=== PATIENT | female | born 1985 | race Caucasian/White ===

== ENCOUNTER 2019-01-18 23:26 | Emergency (ER) | payer BC, OTHER, SELFPAY ==
[~2019-01-18] VITALS: Ht 167.6 cm; Wt 72.7 kg
[2019-01-18 23:30] VITALS: BP 143/87
== END 2019-01-19 01:32 | disposition home or self-care (01) ==
LOC: ED 01-19 01:29
DX: S29.011A Strain of muscle and tendon of front wall of thorax, initial encounter (principal); W19.XXXA Unspecified fall, initial encounter; Y93.89 Activity, other specified; Y92.89 Other specified places as the place of occurrence of the external cause; Y99.8 Other external cause status
CPT/HCPCS: 71101; 99283; Q0162

== ENCOUNTER 2020-09-09 11:44 | Day surgery (SDC) | payer BC ==
[~2020-09-09] VITALS: Ht 167.6 cm; Wt 72.0 kg
[2020-09-09] MEDS ORDERED: IBUP200T49 PO (12:09)
--- NOTE | 2020-09-09 12:25 | NUR ---
PT STATES YESTERDAY ABD PAIN BEGAN, CONTINUOUS THROBBING PAIN AND INTERMITTENT STABBING PAIN IN RLQ. COULDNT TAKE THE PAIN ANY LONGER SO PT COME IN ED. PT RPORTS DARK DIARRHEA AND VOMITS EVERYTIME PT EATS.
[2020-09-09] MEDS ORDERED: SODIUM CHLORIDE 0.9% 1,000ML IVBOLUS ONE (12:30)
[2020-09-09] MEDS ORDERED: SODIUM CHLORIDE FLUSH 10ML SYR IVF ONE (12:30)
[2020-09-09] MEDS ORDERED: ONDANSETRON 2MG/ML, 2ML IVPush ONE (12:30)
[2020-09-09] MEDS ORDERED: ONDANSETRON 2MG/ML, 2ML ONE ×2 (12:33→16:03)
[2020-09-09] MEDS ORDERED: MORPHINE SULFATE 4 MG/ML, 1ML ONE ×2 (12:34→14:49)
[2020-09-09 12:42] LABS: BASOPHILS % (AUTO) 0 % (0-1); EOSINOPHILS % (AUTO) 0 % (1-7); LYMPHOCYTES % (AUTO) 19 % (22-44); MEAN CORPUSCULAR HEMOGLOBIN 32.5 pg (27.0-34.8); MEAN CORPUSCULAR HGB CONC 33.6 g/dL (32.4-35.8); MEAN PLATELET VOLUME 8.3 fL (7.4-10.4); MONOCYTES % (AUTO) 9 % (2-9); NEUTROPHILS % (AUTO) 72 % (42-75); PLATELET COUNT 268 x10^3/uL (130-400); RED BLOOD COUNT 4.23 x10^6/uL (3.82-5.3); RED CELL DISTRIBUTION WIDTH 12.5 % (9.6-15.2)
[2020-09-09 12:43] LABS: MD NO
[2020-09-09 12:49] LABS: ALANINE AMINOTRANSFERASE 30 U/L (12-78); ALBUMIN 3.3 g/dL (3.4-5.0); ANION GAP 6 mmol/L (5-15); CALCIUM 8.6 mg/dL (8.5-10.1); CHLORIDE 108 mmol/L (98-107); CREATININE 0.71 mg/dL (0.55-1.02)
[2020-09-09] MEDS: MORPHINE SULFATE 4 MG/ML, 1ML IVPush PRN ×2 (12:58→14:57)
[2020-09-09 12:59] LABS: ALKALINE PHOSPHATASE 105 U/L (45-117); BILIRUBIN,TOTAL 0.5 mg/dL (0.2-1.0); TOTAL PROTEIN 6.9 g/dL (6.4-8.2)
--- NOTE | 2020-09-09 13:20 | NUR ---
pt went to bathroom to get urine sample.
--- NOTE | 2020-09-09 13:38 | NUR ---
PT OFF UNIT IN IMAGING.
[2020-09-09 13:40] LABS: MICROSCOPIC AUTO
[2020-09-09] MEDS ORDERED: OMNIPAQUE 350 MG/ML, 100ML BOTTLE ONE (13:44)
[2020-09-09 13:58] VITALS: BP 113/73
[2020-09-09] MEDS ORDERED: CEFTRIAXONE PMX 1GM/50ML 50 ML IV ONE (14:30)
[2020-09-09] MEDS ORDERED: CEFTRIAXONE PMX 1GM/50ML 50 ML ONE (14:49)
[2020-09-09] MEDS ORDERED: METRONIDAZOLE PMX 500MG/100ML 100 ML IV ONE (15:00)
[2020-09-09] MEDS ORDERED: CHLORHEXIDINE 15 ML UDC PO ONE (15:00)
--- NOTE | 2020-09-09 15:03 | NUR ---
REPORT GIVEN TO OR NURSE AND AUDELIA HILARIO.
[2020-09-09] MEDS ORDERED: BUPIVACAINE/PF 0.5% ONE (15:12)
[2020-09-09] MEDS ORDERED: EPINEPHRINE 1 MG/ML, 1ML ONE (15:12)
[2020-09-09] MEDS ORDERED: MIDAZOLAM 1 MG/ML, 2ML ONE (15:37)
[2020-09-09] MEDS ORDERED: FENTANYL PF 100 MCG/2ML ONE ×2 (15:37→16:43)
[2020-09-09] MEDS ORDERED: KETOROLAC 30 MG/1 ML ONE (15:41)
[2020-09-09] MEDS ORDERED: CEFOTETAN 2 GM ONE (15:41)
[2020-09-09] MEDS ORDERED: SUGAMMADEX 200 MG/2 ML IVPush ONE (15:41)
[2020-09-09] MEDS ORDERED: LIDOCAINE-MPF 2% ,5ML ONE (15:41)
[2020-09-09] MEDS ORDERED: ONDANSETRON 2MG/ML, 2ML IVPush PRN (16:00)
[2020-09-09] MEDS ORDERED: OXYcodone 5 MG/5 ML ORAL.SOL UDC PO PRN (16:00)
[2020-09-09] MEDS ORDERED: ACETAMINOPHEN 325 MG TABLET PO PRN (16:00)
[2020-09-09] MEDS ORDERED: PROMETHAZINE 25 MG/ML, 1ML IVPush PRN (16:00)
[2020-09-09] MEDS ORDERED: HYDROmorphone 1 MG/ML, 1ML INJ IVPush PRN (16:00)
[2020-09-09] MEDS ORDERED: EPHEDRINE 50 MG/ML, 1ML IVPush PRN (16:00)
[2020-09-09] MEDS ORDERED: LABETALOL 5MG/ML, 20ML IV PRN (16:00)
[2020-09-09] MEDS ORDERED: hydrALAzine 20 MG/ML, 1ML IV PRN (16:00)
[2020-09-09] MEDS ORDERED: SUCCINYLCHOLINE 20 MG/ML, 10ML ONE (16:03)
[2020-09-09] MEDS ORDERED: DEXAMETHASONE 4 MG/ML, 1ML ONE (16:03)
[2020-09-09] MEDS ORDERED: PROPOFOL 10 MG/ML, 20ML ONE (16:03)
[2020-09-09] MEDS ORDERED: ROCURONIUM 10MG/ML,5ML ONE (16:03)
[2020-09-09] MEDS ORDERED: OXYC5TAB2 PO (16:38)
[2020-09-09] MEDS: FENTANYL PF 100 MCG/2ML IV PRN ×2 (16:44→16:59)
[2020-09-09] MEDS ORDERED: OXYcodone 5 MG/5 ML ORAL.SOL UDC ONE (17:08)
[2020-09-09] MEDS ORDERED: ACETAMINOPHEN 650 MG/20.3 ML UDC ONE (17:08)
== END 2020-09-09 18:20 | disposition home or self-care (01) ==
LOC: ED 13:58 → SDC 13:58 → UNDOADMOB 14:37 → ORIP 14:37 → ED 18:20 → SDC 18:20 → UNDODISOB 18:20
PROVIDERS: ATTEND Emergency Medicine
DX: K35.80 Unspecified acute appendicitis (principal); F12.90 Cannabis use, unspecified, uncomplicated; Z20.822 Contact with and (suspected) exposure to COVID-19; Z79.899 Other long term (current) drug therapy; Z87.891 Personal history of nicotine dependence; Z72.89 Other problems related to lifestyle
CPT/HCPCS: 36415; 44970; 74177; 80053; 81001; 83690; 84703; 85025; 87077; 87086; 87186; 87635; 88304; 96374; 96375; 96376; 99285; J0171; J0330; J0696; J1100; J1885; J2250; J2270; J2405; J2704; J3010; J7030; Q9967; G0378

== ENCOUNTER 2020-11-14 02:50 | Emergency (ER) | payer BC ==
[~2020-11-14] VITALS: Ht 167.6 cm; Wt 73.0 kg
[~2020-11-14 02:50] MED LIST: IBUP200T49 PO; OXYC5TAB2 PO
[2020-11-14] MEDS ORDERED: ACETAMINOPHEN 325 MG TABLET PO ONE (04:00)
[2020-11-14] MEDS ORDERED: IBUPROFEN 200 MG TABLET PO ONE (04:00)
[2020-11-14] MEDS ORDERED: IBUPROFEN 600 MG TABLET ONE (04:16)
[2020-11-14] MEDS ORDERED: ACETAMINOPHEN 325 MG TABLET ONE (04:16)
[2020-11-14] MEDS ORDERED: L.E.T SOLUTION TP ONE ×2 (04:17→04:30)
[2020-11-14] MEDS ORDERED: IBUPROFEN 600 MG TABLET PO ONE (04:30)
[2020-11-14 05:08] VITALS: BP 108/75
[2020-11-14] MEDS ORDERED: NEOSPORIN OINT. PKT 1 PACKET ONE (05:14)
--- NOTE | 2020-11-14 05:33 | NUR ---
Patient given discharge instructions and they have confirmed that they understand the instructions. Patient ambulatory with steady gait. No questions at time of discharge.
== END 2020-11-14 05:35 | disposition home or self-care (01) ==
LOC: ED 03:58
DX: S42.024A Nondisplaced fracture of shaft of right clavicle, initial encounter for closed fracture (principal); X58.XXXA Exposure to other specified factors, initial encounter; Y93.89 Activity, other specified; Y92.410 Unspecified street and highway as the place of occurrence of the external cause; Y99.8 Other external cause status
CPT/HCPCS: 99284